=== PATIENT | female | born 1970 | race Caucasian/White ===

== ENCOUNTER 2018-06-19 22:40 | Emergency (ER) | payer OTHER ==
[2018-06-19 22:57] VITALS: BP 98/65; PULSE 80; TEMP 97.3; BMI 23.3
--- NOTE | 2018-06-19 23:25 | PDOC ---
History of Present Illness - General Chief Complaint: Pain, Acute Stated Complaint: STOMACH PAIN/VOMITING Time Seen by Provider: 06/19/18 23:24 History Source: Patient, Family Exam Limitations: Language Barrier - History of Present Illness Initial Comments: 06/20/18 00:13 This is a 48 yo F with no PMH (had recent physical), who presents to ED due to severe 9/10 abdominal pain that started at 9 am after a light breakfast of coffee/toast. pain is RUQ, sharp, constant, nonradiating, associated with N and and 2 episodes of NBNB vomiting as well as chills. She had similar pain, though less intense on 2 other occasions over the past 2 mo, both times self remitting after 2 hrs. She denies pain association with meals. She consumed a fatty meal last night. She denies fever, sob, cp, cough, dizziness, dysuria, flank pain, sick contacts, recent abx use. denies d/c/melena/hematochezia, hematemesis. patient is menopausal 06/20/18 00:17 06/20/18 01:27 Past History - Past Medical History Allergies/Adverse Reactions: Allergies Allergy/AdvReac Type Severity Reaction Status Date / Time No Known Allergies Allergy Verified 06/19/18 22:55 Home Medications: Ambulatory Orders NK [No Known Home Medication] 06/20/18 Anemia: No Asthma: No Cancer: No Cardiac Disorders: No COPD: No Dementia: No - Surgical History Cholecystectomy: No Gastric Stapling: No GI Surgery: No Lung Surgery: No Neurologic Surgery: No - Suicide/Smoking/Psychosocial Hx Smoking History: Never smoked Have you smoked in the past 12 months: No Information on smoking cessation initiated: No Hx Alcohol Use: No Drug/Substance Use Hx: No Review of Systems - Review of Systems Able to Perform ROS?: Yes Is the patient limited Khmer proficient: No Constitutional: Yes: Chills. No: Fever HEENTM: No: Nose Congestion, Difficulty Swallowing Respiratory: No: Cough, Orthopnea, Shortness of Breath Cardiac (ROS): No: Chest Pain, Edema, Irregular Heart Rate, Palpitations, Syncope ABD/GI: Yes: Nausea, Vomiting, Abdominal cramping. No: Abdominal Distended, Constipated, Diarrhea, Rectal Bleeding, Tarry Stools : No: Dysuria Musculoskeletal: No: Back Pain Neurological: No: Headache, Numbness, Paresthesia Psychiatric: No: Anxiety, Depression *Physical Exam - Vital Signs Last Vital Signs Temp Pulse Resp BP Pulse Ox 97.3 F L 80 20 98/65 98 06/19/18 22:55 06/19/18 22:55 06/19/18 22:55 06/19/18 22:55 06/19/18 22:55 - Physical Exam General Appearance: Yes: Nourished, Apparent Distress, Moderate Distress ( patient is pale, tearful, very unfomfotable, walks with difficulty hunched over to the right ) HEENT: positive: EOMI, Normal Voice, Symmetrical. negative: Scleral Icterus (R) , Scleral Icterus (L) Neck: positive: Trachea midline, Normal Thyroid, Supple. negative: Lymphadenopathy (R), Lymphadenopathy (L) Respiratory/Chest: positive: Lungs Clear, Normal Breath Sounds Cardiovascular: positive: Regular Rhythm, Regular Rate, S1, S2. negative: Edema , JVD Gastrointestinal/Abdominal: positive: Tender (severely gericare aide RUQ, moderately tender diffusely, + [place]), Flat, Soft, Decreased BS (severely reduced to absent ), Guarding, Rebound. negative: Normal Bowel Sounds, Distended, Mass Musculoskeletal: negative: CVA Tenderness Integumentary: positive: Dry, Warm, Mottled, Pale Neurologic: positive: music grapher II-XII NML intact (grossly) Moderate Sedation - Procedure Monitoring Vital Signs: Procedure Monitoring Vital Signs Temperature 97.3 F L 06/19/18 22:55 Pulse Rate 80 06/19/18 22:55 Respiratory Rate 20 06/19/18 22:55 Blood Pressure 98/65 06/19/18 22:55 O2 Sat by Pulse Oximetry (%) 98 06/19/18 22:55 ED Treatment Course - LABORATORY CBC & Chemistry Diagram: 06/19/18 00:35 06/19/18 00:35 - ADDITIONAL ORDERS Additional order review: 06/20/18 00:21 clinical picture suspicious of cholecystitis will give 1 L LR, morphine 4 mg iv, zofran f/u RUQ US, cbc, cmp, lipase, triglycerides, lactate 06/20/18 00:22 06/20/18 01:19 mild transaminitis and leukocytosis 12.3 and lactic acid 2.5 noted on labs 06/20/18 01:39 US RUQ significant only for fatty liver. given lab findings and clinical picture , will get CT abd/pelvis w po and iv contrast 06/20/18 01:43 *DC/Admit/Observation/Transfer Diagnosis at time of Disposition: Abdominal pain Qualifiers: Abdominal location: right upper quadrant Qualified Code(s): R10.11 - Right upper quadrant pain - Referrals - Patient Instructions - Post Discharge Activity
[2018-06-19] MEDS ORDERED: LACTATED RINGERS SOLUTION 1000 ML INFUS.BAG IV ONE (23:45)
[2018-06-19] MEDS ORDERED: ONDANSETRON 4 MG/2 ML VIAL IVPUSH ONE (23:45)
[2018-06-19] MEDS ORDERED: morphine CARPU-JECT 4 MG/1 ML DISP.SYRIN IVPUSH ONE (23:46)
--- NOTE | 2018-06-19 23:46 | PDOC ---
Attending Attestation - HPI HPI: 06/19/18 23:51 The patient is a 48 year old female, with a significant past medical history of , who presents to the emergency department with, 1 day of nausea, vomiting, and diffuse abdominal pain. Patient notes this morning at approximately 9am her symptoms onset. She notes similar episodes in the past 2 months which resolved on its own after an hour or two. She denies recent fevers, chills, headache or dizziness. She denies recent diarrhea or constipation. She denies recent dysuria, frequency, urgency or hematuria. She denies recent chest pain or shortness of breath. Allergies: NKDA Past surgical history: . - Physicial Exam PE: 06/20/18 00:32 GENERAL: Well-appearing, well-nourished. No apparent distress. HEENT: Normocephalic, atraumatic. PERRL, EOM intact. CARDIOVASCULAR: Normal S1, S2. Regular rate and rhythm. PULMONARY: Clear to auscultation bilaterally. ABDOMEN: RUQ tenderness. Soft, non-distended. EXTREMITIES: Normal ROM in all four extremities. No gross deformities. SKIN: Warm, dry. No rash NEUROLOGICAL: No focal neurological deficits. - Medical Decision Making 06/20/18 01:43 EXAM: Ultrasound abdomen limited, right upper quadrant and limited abdominal duplex HISTORY: Rule out cholecystitis COMPARISON: None. FINDINGS: Right upper quadrant ultrasound: The liver is mildly fatty and borderline enlarged 17.3 cm, without mass or biliary duct dilation. The gallbladder is normal. The CBD is not dilated and measures4 millimeters in diameter. Right kidney measures 11.1centimeters in length and is unremarkable. The visualized aorta and IVC are normal. Pancreas is partially obscured, but appears normal. Abdominal duplex: The main portal vein demonstrates normal hepatopedal flow. IMPRESSION: Mildly enlarged , mildly fatty liver. Read by: Bari Garcia MD <Charisse Wade - Last Filed: 06/20/18 01:43> - Resident Resident Name: Karen Cruz - ED Attending Attestation I have performed the following: I have examined & evaluated the patient, The case was reviewed & discussed with the resident, I agree w/resident's findings & plan, Exceptions are as noted - HPI HPI: 06/19/18 23:45 48 yo female has been experiencing epigastric pain with nausea and vomiting for 1 day. - Medical Decision Making 06/19/18 23:46 PSH c section PMH none -she is post menopause 06/20/18 16:42 ct scan abd/pel: enlarged fatty liver pt's symptoms resolved and she was discharged home <Giovana Otero - Last Filed: 06/20/18 16:43> Attestations - Attestations 06/19/18 23:52 Documentation prepared by Charisse Wade, acting as medical staff services manager for Giovana Otero MD. <Charisse Wade - Last Filed: 06/20/18 01:43>
[2018-06-20] MEDS ORDERED: FAMOTIDINE 20 MG/50 ML IVPB 20 MG/50 ML MG IVPB ONE ×2 (00:43→00:46)
[2018-06-20] MEDS ORDERED: morphine SULFATE 4 MG/ML VIAL ONE (00:45)
[2018-06-20] MEDS ORDERED: ONDANSETRON 4 MG/2 ML VIAL ONE (00:46)
[2018-06-20 01:00] LABS: BASO % 0.3 % (0-2.0); EOS % 1.2 % (0-4.5); HEMOGLOBIN 12.5 GM/dL (10.7-15.3); LYMPH % 23.2 % (8-40); MCH 29.9 pg (25.7-33.7); MCHC 35.5 g/dl (32.0-36.0); MEAN CELL VOLUME 84.1 fl (80-96); MEAN PLT VOLUME 7.1 fl (7.5-11.1); MONO % 6.3 % (3.8-10.2); PLATELET COUNT 402 K/MM3 (134-434); RBC 4.17 M/mm3 (3.60-5.2); RDW 14.7 % (11.6-15.6); WHITE BLOOD COUNT 12.3 K/mm3 (4.0-10.0)
[2018-06-20 01:15] LABS: ALBUMIN 3.9 g/dl (3.4-5.0); ALK PHOS 155 U/L (45-117); ANION GAP 7 MMOL/L (8-16); BILIRUBIN,TOTAL 0.4 mg/dL (0.2-1); BLOOD UREA NITROGEN 13 mg/dL (7-18); CALCIUM 8.8 mg/dL (8.5-10.1); CHLORIDE 104 mmol/L (98-107); CO2 27 mmol/L (21-32); CREATININE 0.6 mg/dL (0.55-1.3); GLUCOSE,RANDOM 125 mg/dL (74-106); LIPASE 227 U/L (73-393); POTASSIUM 4.4 mmol/L (3.5-5.1); SGOT/AST 87 U/L (15-37); SGPT/ALT 116 U/L (13-61); SODIUM 138 mmol/L (136-145); TOT PROT 7.7 g/dl (6.4-8.2); TRIGLYCERIDES 270 mg/dL (0-150)
[2018-06-20] MEDS ORDERED: MAG HYDROX/AL HYDROX/SIMETH 30 ML UNIT-DOSE CUP PO ONE (01:30)
[2018-06-20 02:05] LABS: URINE APPEARANCE SLCLOUDY; URINE BILIRUBIN NEGATIVE (<2.0 mg/dL); URINE COLOR YELLOW; URINE GLUCOSE (UA) NEGATIVE (NEGATIVE); URINE KETONE NEGATIVE (NEGATIVE); URINE LEUK ESTERASE NEGATIVE (NEGATIVE); URINE NITRITE POSITIVE (NEGATIVE); URINE PROTEIN NEGATIVE (NEGATIVE); URINE UROBILINOGEN NEGATIVE mg/dL (0.2-1.0)
[2018-06-20 02:08] LABS: EPI CELLS RARE /HPF (FEW); URINE BACTERIA RARE /hpf (NONE SEEN); URINE MUCUS RARE
[2018-06-20] MEDS ORDERED: SODIUM CHLORIDE 0.9% 500 ML INFUS.BAG IV ONE (02:10)
[2018-06-20] MEDS ORDERED: MAG HYDROX/AL HYDROX/SIMETH 30 ML UNIT-DOSE CUP ONE (03:04)
--- NOTE | 2018-06-20 04:20 | PDOC ---
*Physical Exam - Vital Signs Last Vital Signs Temp Pulse Resp BP Pulse Ox 97.3 F L 80 20 98/65 98 06/19/18 22:55 06/19/18 22:55 06/19/18 22:55 06/19/18 22:55 06/19/18 22:55 <Luz Tang - Last Filed: 06/20/18 04:36> - Vital Signs Last Vital Signs Temp Pulse Resp BP Pulse Ox 97.3 F L 80 20 98/65 98 06/19/18 22:55 06/19/18 22:55 06/19/18 22:55 06/19/18 22:55 06/19/18 22:55 <Mar Gilbert - Last Filed: 06/20/18 04:53> ED Treatment Course - LABORATORY CBC & Chemistry Diagram: 06/19/18 00:35 06/19/18 00:35 - ADDITIONAL ORDERS Additional order review: Laboratory Results 06/20/18 06/19/18 06/19/18 01:50 00:35 00:35 Sodium 138 Potassium 4.4 Chloride 104 Carbon Dioxide 27 Anion Gap 7 L BUN 13 Creatinine 0.6 Creat Clearance w eGFR > 60 Random Glucose 125 H Lactic Acid 2.5 H* Calcium 8.8 Total Bilirubin 0.4 AST 87 H ALT 116 H Alkaline Phosphatase 155 H Total Protein 7.7 Albumin 3.9 Triglycerides 270 H Lipase 227 Urine Color Yellow Urine Appearance Slcloudy Urine pH 6.0 Ur Specific [place] 1.020 Urine Protein Negative Urine Glucose (UA) Negative Urine Ketones Negative Urine Blood Negative Urine Nitrite Positive Urine Bilirubin Negative Urine Urobilinogen Negative Ur Leukocyte Esterase Negative Urine WBC (Auto) 3 Urine RBC (Auto) 4 Ur Epithelial Cells Rare Urine Bacteria Rare Urine Mucus Rare 06/19/18 00:35 RBC 4.17 MCV 84.1 MCHC 35.5 RDW 14.7 MPV 7.1 L Neutrophils % 69.0 Lymphocytes % 23.2 Monocytes % 6.3 Eosinophils % 1.2 Basophils % 0.3 - Medications Given in the ED: ED Medications Discontinued Medications Generic Name Dose Route Start Last Admin Trade Name Freq PRN Reason Stop Dose Admin Famotidine/Sodium Chloride 20 mg in 50 mls @ 100 mls/hr 06/20/18 00:43 01:02 Pepcid 20 Mg Premixed Ivpb - IVPB 06/20/18 01:12 100 mls/hr ONCE ONE Administration Lactated Ringer's 1,000 ml 06/19/18 23:45 06/20/18 01:02 Lactated Ringers Solution IV 06/19/18 23:46 1,000 ml ONCE ONE Administration Morphine Sulfate 4 mg 06/19/18 23:46 06/20/18 01:02 Morphine Injection - IVPUSH 06/19/18 23:47 4 mg ONCE ONE Administration Ondansetron HCl 4 mg 06/19/18 23:45 06/20/18 01:02 Zofran Injection IVPUSH 06/19/18 23:46 4 mg ONCE ONE Administration Sodium Chloride 1,000 ml 06/20/18 02:10 06/20/18 03:08 Normal Saline - IV 06/20/18 02:11 1,000 ml ONCE ONE Administration <Luz Tang - Last Filed: 06/20/18 04:36> - LABORATORY CBC & Chemistry Diagram: 06/19/18 00:35 06/19/18 00:35 - ADDITIONAL ORDERS Additional order review: Laboratory Results 06/20/18 06/19/18 06/19/18 01:50 00:35 00:35 Sodium 138 Potassium 4.4 Chloride 104 Carbon Dioxide 27 Anion Gap 7 L BUN 13 Creatinine 0.6 Creat Clearance w eGFR > 60 Random Glucose 125 H Lactic Acid 2.5 H* Calcium 8.8 Total Bilirubin 0.4 AST 87 H ALT 116 H Alkaline Phosphatase 155 H Total Protein 7.7 Albumin 3.9 Triglycerides 270 H Lipase 227 Urine Color Yellow Urine Appearance Slcloudy Urine pH 6.0 Ur Specific [place] 1.020 Urine Protein Negative Urine Glucose (UA) Negative Urine Ketones Negative Urine Blood Negative Urine Nitrite Positive Urine Bilirubin Negative Urine Urobilinogen Negative Ur Leukocyte Esterase Negative Urine WBC (Auto) 3 Urine RBC (Auto) 4 Ur Epithelial Cells Rare Urine Bacteria Rare Urine Mucus Rare 06/19/18 00:35 RBC 4.17 MCV 84.1 MCHC 35.5 RDW 14.7 MPV 7.1 L Neutrophils % 69.0 Lymphocytes % 23.2 Monocytes % 6.3 Eosinophils % 1.2 Basophils % 0.3 - Medications Given in the ED: ED Medications Discontinued Medications Generic Name Dose Route Start Last Admin Trade Name Freq PRN Reason Stop Dose Admin Famotidine/Sodium Chloride 20 mg in 50 mls @ 100 mls/hr 06/20/18 00:43 01:02 Pepcid 20 Mg Premixed Ivpb - IVPB 06/20/18 01:12 100 mls/hr ONCE ONE Administration Lactated Ringer's 1,000 ml 06/19/18 23:45 06/20/18 01:02 Lactated Ringers Solution IV 06/19/18 23:46 1,000 ml ONCE ONE Administration Morphine Sulfate 4 mg 06/19/18 23:46 06/20/18 01:02 Morphine Injection - IVPUSH 06/19/18 23:47 4 mg ONCE ONE Administration Ondansetron HCl 4 mg 06/19/18 23:45 06/20/18 01:02 Zofran Injection IVPUSH 06/19/18 23:46 4 mg ONCE ONE Administration Sodium Chloride 1,000 ml 06/20/18 02:10 06/20/18 03:08 Normal Saline - IV 06/20/18 02:11 1,000 ml ONCE ONE Administration <Mar Gilbert - Last Filed: 06/20/18 04:53> Medical Decision Making - Medical Decision Making 06/20/18 04:36 Patient Name: JUNIOR FISHER THIS IS A PRELIMINARY REPORT FROM [facility] DATE OF SERVICE: 2018-06-20 04:09:24 IMAGES: [id number] EXAM: ABDOMEN \T\ PELVIS CT WITH CONTR HISTORY: Right upper quadrant pain COMPARISON: None. FINDINGS: Lung bases are clear. The visualized cardiac chambers are normal size and configuration. There is fatty and enlarged. Normal gallbladder, pancreas, spleen , adrenal glands and kidneys. The stomach and abdominal small and large bowel are normal. There is no aortic aneurysm. There is no significant retroperitoneal lymphadenopathy. The pelvic small and large bowel are normal. There is no evidence of appendicitis although the appendix is only questionably visualized. Status post hysterectomy l. Urinary bladder is unremarkable. There is no pelvic free fluid. No discrete pelvic lymphadenopathy is identified. IMPRESSION: Enlarged fatty liver. 06/20/18 04:37 NITRITE POSITIVE URINE FATTY LIVER <Luz Tang - Last Filed: 06/20/18 04:36> - Medical Decision Making 06/20/18 04:18 Pt signed out to me by Dr. Cruz. This is a 48 yo F with no PMH presents to ED for severe 9/10 abdominal pain that started at 9 am. RUQ, sharp, constant, nonradiating, associated with N and and 2 episodes of NBNB vomiting as well as chills. She denies pain association with meals. She consumed a fatty meal last night. She denies fever, sob, cp, cough, dizziness, dysuria, flank pain, sick contacts, recent abx use. denies d/ c/melena/hematochezia, hematemesis. patient is menopausal Labs significant for: Laboratory Tests 06/19/18 06/19/18 06/19/18 00:35 00:35 00:35 WBC 12.3 H Lactic Acid 2.5 H* AST 87 H ALT 116 H Alkaline Phosphatase 155 H Triglycerides 270 H Urine Nitrite 06/20/18 01:50 WBC Lactic Acid AST ALT Alkaline Phosphatase Triglycerides Urine Nitrite Positive U/S showed fatty liver. Pending CT. Will repeat lactate. 06/20/18 04:50 CT: Liver is fatty and enlarged. Normal GB, pancreas, spleen, adrenal glands and kidneys. Stomach and abdominal small and large bowel are normal. No AAA.No significant retroperitoneal LAD. No evidence of appendicitis although appendix is only questionably visualized. s/p hysterectomy. No pelvic ff. Pt feels better, non tender abdomen. Will DC. Rx for nitrofurantion. Will f/u with PMD <Mar Gilbert - Last Filed: 06/20/18 04:53> *DC/Admit/Observation/Transfer <Luz Tang - Last Filed: 06/20/18 04:36> - Discharge Dispostion Decision to Admit order: No <Mar Gilbert - Last Filed: 06/20/18 04:53> Diagnosis at time of Disposition: Fatty liver Abdominal pain Qualifiers: Abdominal location: unspecified location Qualified Code(s): R10.9 - Unspecified abdominal pain UTI (urinary tract infection) Qualifiers: Urinary tract infection type: site unspecified Hematuria presence: without hematuria Qualified Code(s): N39.0 - Urinary tract infection, site not specified - Discharge Dispostion Disposition: HOME Condition at time of disposition: Improved - Prescriptions Prescriptions: Nitrofurantoin Monohyd/M-Cryst [Macrobid -] 100 mg PO BID #14 capsule - Patient Instructions Printed Discharge Instructions: DI for Urinary Tract Infection (UTI), DI for Nonalcoholic Fatty Liver Disease Additional Instructions: You were seen here today for abdominal pain. The blood tests were normal and the CT scan showed a fatty liver. I recommend that you see your primary care doctor for further evaluation and management of the liver. Please schedule an appointment this week. If you feel nauseous, stick to a liquid diet for now. Only start eating solid foods when you tolerate liquids. A prescription for an antibiotic was sent to your pharmacy. Please take as directed. Come back to the emergency room if pain gets worse, pain is in the middle of your stomach or moves the the lower right side, you develop fever, you have blood in the vomit or stool or if any new concerning symptom develops. Thank you Print Language: LIBERIAN
[2018-06-20] MEDS ORDERED: NITROFURANTOIN MACROCRYSTAL 50 MG CAPSULE (FP) PO SCH (04:45)
[2018-06-20] MEDS ORDERED: NITROFURANTOIN MACROCRYSTAL 50 MG CAPSULE (FP) ONE (05:18)
== END 2018-06-20 05:59 | disposition home or self-care (01) ==
LOC: JER 22:40
PROC: 3E033GC Introduction of Other Therapeutic Substance into Peripheral Vein, Percutaneous Approach (ICD-10-PCS; principal; 2018-06-19)
PROC: 3E033GC Introduction of Other Therapeutic Substance into Peripheral Vein, Percutaneous Approach (ICD-10-PCS; 2018-06-19)
PROC: 3E033NZ Introduction of Analgesics, Hypnotics, Sedatives into Peripheral Vein, Percutaneous Approach (ICD-10-PCS; 2018-06-19)
DX: N39.0 Urinary tract infection, site not specified (principal); K76.0 Fatty (change of) liver, not elsewhere classified; R16.0 Hepatomegaly, not elsewhere classified
CPT/HCPCS: 36415; 74177-TC; 76705-TC; 80053; 81003; 81015; 83605; 83690; 84478; 85025; 87040; 87086; 96365; 96375; 99281-25; 99285-25